=== PATIENT | male | born 1985 ===

== ENCOUNTER 2016-12-04 17:52 | Emergency (ER) | payer BC ==
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
== END 2016-12-04 18:41 | disposition home or self-care (01) ==
LOC: CC.ED 17:52
DX: S02.2XXA Fracture of nasal bones, initial encounter for closed fracture (principal); S01.21XA Laceration without foreign body of nose, initial encounter; F17.210 Nicotine dependence, cigarettes, uncomplicated; Z98.890 Other specified postprocedural states; Y04.0XXA Assault by unarmed brawl or fight, initial encounter
CPT/HCPCS: 12011; 70160; 99283